=== PATIENT | male | born 1980 ===

== ENCOUNTER 2017-01-01 15:02 | Emergency (ER) | payer OTHER ==
[2017-01-01 15:12] VITALS: BP 136/78; PULSE 68; RESP 20; TEMP 98; O2SAT 100
[2017-01-01 15:43] LABS: BASO # 0.1 K/uL (0.0-0.2); EOS # 0.2 K/uL (0.0-0.7); EOS % 2.2 % (0.0-4.0); HEMOGLOBIN 14.4 g/dL (12.0-18.0); LYMPH # 2.1 K/uL (1.0-4.3); LYMPH % 29.4 % (20.0-40.0); MEAN CORPUSCULAR HEMOGLOBIN 30.5 pg (27.0-31.0); MEAN CORPUSCULAR HGB CONC 34.3 g/dL (33.0-37.0); MONO # 0.3 K/uL (0.0-0.8); MONO % 4.5 % (0.0-10.0); NEUT # 4.6 K/uL (1.8-7.0); NEUT % 62.9 % (50.0-75.0); NRBC % 0.2 % (0.0-0.0); RBC 4.71 Mil/uL (4.40-5.90); RED CELL DISTRIBUTION WIDTH 13.3 % (11.5-14.5); WHITE BLOOD COUNT 7.2 K/uL (4.8-10.8)
[2017-01-01 16:00] LABS: ALB/GLOB RATIO 1.4 (1.0-2.1); ALBUMIN 4.6 g/dL (3.5-5.0); ALT/SGPT 39 U/L (21-72); AST/SGOT 27 U/L (17-59); BLOOD UREA NITROGEN 19 mg/dl (9-20); CALCIUM 9.1 mg/dL (8.4-10.2); GFR AFRICAN-AMERICAN > 60; GFR NON-AFRICAN AMERICAN > 60; MAGNESIUM 2.1 MG/DL (1.6-2.3)
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
--- NOTE | 2017-01-01 17:50 | CT ---
PROCEDURE: CT HEAD WITHOUT CONTRAST. HISTORY: RIGHT sided headache RIGHT facial droop COMPARISON: None available. TECHNIQUE: Axial computed tomography images were obtained through the head/brain without intravenous contrast. Radiation dose: Total exam DLP = 805.14 mGy-cm. This CT exam was performed using one or more of the following dose reduction techniques: Automated exposure control, adjustment of the mA and/or kV according to patient size, and/or use of iterative reconstruction technique. FINDINGS: HEMORRHAGE: No intracranial hemorrhage. BRAIN: Ballesteros-white matter differentiation is preserved. There is no mass, mass effect or abnormal extra-axial fluid collection. VENTRICLES: The ventricles are normal in size, shape and configuration.. CALVARIUM: The skull base and calvarium are normal. PARANASAL SINUSES: Predominantly clear. MASTOID AIR CELLS: Predominantly clear. OTHER FINDINGS: None. IMPRESSION: No acute intracranial abnormality. If there is a persistent focal neurologic deficit and an ongoing clinical concern for acute infarction, an MRI of the brain without intravenous contrast would be a more sensitive modality for evaluation of hyperacute/acute ischemic infarction.
--- NOTE | 2017-01-02 09:51 | CARD ---
APPROVED REPORT EKG Measurement Heart [id number] VA 150P33 [id number] <Conclusion> Normal sinus rhythm Normal ECG
== END 2017-01-01 19:18 | disposition home or self-care (01) ==
LOC: H.ER 15:02
DX: G51.0 Bell's palsy (principal)

== ENCOUNTER 2017-01-03 16:16 | Emergency (ER) | payer OTHER ==
[2017-01-03 16:29] VITALS: BP 135/86; PULSE 94; RESP 18; TEMP 98.8; O2SAT 99
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
--- NOTE | 2017-01-10 10:07 | CARD ---
APPROVED REPORT EKG Measurement Heart [id number] AR 148P59 [id number] <Conclusion> Sinus tachycardia Otherwise normal ECG
== END 2017-01-03 17:30 | disposition home or self-care (01) ==
LOC: H.ER 16:16
DX: G51.0 Bell's palsy (principal)

== ENCOUNTER 2018-02-28 03:56 | Emergency (ER) | payer OTHER, SELFPAY ==
[2018-02-28 03:56] VITALS: BMI 26.4
[2018-02-28 04:15] VITALS: BP 108/62; PULSE 65; RESP 14; TEMP 98.9; O2SAT 98
[2018-02-28] MEDS ORDERED: Tdap Vaccine 0.5 ml Vial (10-64 yrs) IM ONE (04:17)
[2018-02-28] MEDS ORDERED: Amoxicillin-Clav 875-125 mg Tab PO STA (04:23)
--- NOTE | 2018-02-28 04:26 | ED PDOC ---
Lower Extremity Pain/Injury Time Seen by Provider: 02/28/18 04:11 Chief Complaint (Nursing): Lower Extremity Problem/Injury Chief Complaint (Provider): Lower Extremity Problem/Injury History Per: Patient History/Exam Limitations: no limitations Onset/Duration Of Symptoms: Hrs (x36) Current Symptoms Are (Timing): Still Present Additional Complaint(s): 37 y/o male with no significant PMHx presents to the ED for evaluation of a right foot puncture injury, onset 36 hours ago. Patient states he stepped on a nail while wearing shoes and punctured the anterior part of his right foot. Patient denies having medical care at onset but reports of increasing pain since thus prompting today's visit. Denies medications for pain relief, associated fever and chills. PMD: No Provider Past Medical History Reviewed: Historical Data, Nursing Documentation, Vital Signs Vital Signs: Last Vital Signs Temp 98.9 F 02/28/18 04:12 Pulse 65 02/28/18 04:12 Resp 14 02/28/18 04:12 BP 108/62 02/28/18 04:12 Pulse Ox 98 02/28/18 04:12 - Medical History PMH: No Chronic Diseases Denies: Chronic Kidney Disease - Surgical History Surgical History: No Surg Hx - Family History Family History: States: Unknown Family Hx - Social History Current smoker - smoking cessation education provided: No Alcohol: None Drugs: Denies - Immunization History Hx Tetanus Toxoid Vaccination: Yes Hx Influenza Vaccination: Yes Hx Pneumococcal Vaccination: No - Home Medications Home Medications: Ambulatory Orders Medication Instructions Recorded Amoxicillin/Clavulanate [Augmentin 1 tab PO BID #20 tab 02/28/18 875 MG-125 MG] - Allergies Allergies/Adverse Reactions: Allergies Allergy/AdvReac Type Severity Reaction Status Date / Time No Known Allergies Allergy Verified 02/28/18 04:12 Review of Systems ROS Statement: Except As Marked, All Systems Reviewed And Found Negative Constitutional: Negative for: Fever, Chills Musculoskeletal: Positive for: Foot Pain (right foot puncture injury) Physical Exam - Reviewed Nursing Documentation Reviewed: Yes Vital Signs Reviewed: Yes - Physical Exam Appears: Positive for: No Acute Distress Extremity: Positive for: Other (Small puncture josé miguel to the right anterior portion of the right foot noted. No focal weakness or drainage.) - ECG O2 Sat by Pulse Oximetry: 98 (RA) Pulse Ox Interpretation: Normal Medical Decision Making Medical Decision Making: Time: 422 Impression: 37 y/o male with a right foot puncture injury Plan: -- Adacel (10-64 yrs) 0.5 ml IM -- Augmentin 875 mg -125 mg 1 tab -- Motrin 600 mg PO -- Foot Right 3 Views XR -- XR results show no foreign body fractures. Patient is stable for discharge with a diagnosis of puncture injury of the foot. Scribe Attestation: Documented by Jack Cummings acting as a scribe for Aiden Ovalle MD. Provider Scribe Attestation: All medical record entries made by the Scribe were at my direction and personally dictated by me. I have reviewed the chart and agree that the record accurately reflects my personal performance of the history, physical exam, medical decision making, and the department course for this patient. I have also personally directed, reviewed, and agree with the discharge instructions and disposition. Disposition - Clinical Impression Clinical Impression: Puncture wound - Patient ED Disposition Is Patient to be Admitted: No Counseled Patient/Family Regarding: Studies Performed, Diagnosis - Disposition Disposition: Routine/Home Disposition Time: 04:29 Condition: STABLE Prescriptions: Amoxicillin/Clavulanate [Augmentin 875 MG-125 MG] 1 tab PO BID #20 tab Instructions: Wound Care Forms: [facility] (Azerbaijani), [facility] ED School/Work Excuse
[2018-02-28] MEDS ORDERED: Amoxicillin-Clav 875-125 mg Tab PO ONE (04:28)
--- NOTE | 2018-02-28 09:02 | RAD ---
Date of service: 02/28/2018 PROCEDURE: Right Foot Radiographs. HISTORY: stepped on nail COMPARISON: None. FINDINGS: BONES: Bone alignment and mineralization are normal. There is no acute displaced fracture or bone destruction. JOINTS: Normal. SOFT TISSUES: Normal. No radiopaque foreign body. OTHER FINDINGS: None. IMPRESSION: No acute fracture or dislocation. No radiopaque foreign body.
== END 2018-02-28 05:13 | disposition home or self-care (01) ==
LOC: H.ER 03:56
DX: S91.339A Puncture wound without foreign body, unspecified foot, initial encounter (principal); W45.0XXA Nail entering through skin, initial encounter; Y92.89 Other specified places as the place of occurrence of the external cause

== ENCOUNTER 2018-05-17 10:44 | Emergency (ER) | payer OTHER ==
[2018-05-17 10:45] VITALS: BMI 26.4
[2018-05-17 11:07] VITALS: BP 124/70; PULSE 68; TEMP 98.2; O2SAT 98
[2018-05-17 12:04] VITALS: RESP 19
[2018-05-17] MEDS ORDERED: Fluorescein 1 mg Ophthalmic Strip OU ONE (12:48)
[2018-05-17] MEDS ORDERED: PROPARACAINE/FLUORESCEIN SOD 100 DROP/5 ML BOTTLE ONE (12:52)
--- NOTE | 2018-05-17 13:45 | ED PDOC ---
HPI: Eye Injury/Pain Time Seen by Provider: 05/17/18 12:01 Chief Complaint (Nursing): Eye Problem Chief Complaint (Provider): eye redness History Per: Patient, Playroom Attendant History/Exam Limitations: no limitations Onset/Duration Of Symptoms: Days Current Symptoms Are (Timing): Still Present Injury To Eye?: No Wears Contact Lens?: No Associated Symptoms: Discharge From Eye (had some tearing from eye 3d. ago) Additional Complaint(s): Pt. reports waking up 3d. ago with redness to both eyes, pt. reports some mild discomfort below his right eye which has since resolved. Pt. reports 3d. ago at symptom onset he had some tearing from both eyes, no purulent drainage, no visual disturbance. Pt. reports the redness is unchanged over past 3 days has not gotten worse. Pt. denies any bleeding disorders or other history of bleeding, bruising. Past Medical History Reviewed: Historical Data, Nursing Documentation, Vital Signs Vital Signs: Last Vital Signs Temp 98.2 F 05/17/18 12:01 Pulse 68 05/17/18 12:01 Resp 19 05/17/18 12:01 BP 124/70 05/17/18 12:01 Pulse Ox 98 05/17/18 12:01 - Medical History PMH: No Chronic Diseases Denies: Chronic Kidney Disease - Family History Family History: States: Unknown Family Hx - Immunization History Hx Tetanus Toxoid Vaccination: Yes Hx Influenza Vaccination: Yes Hx Pneumococcal Vaccination: No - Home Medications Home Medications: Ambulatory Orders Medication Instructions Recorded No Known Home Med 05/17/18 - Allergies Allergies/Adverse Reactions: Allergies Allergy/AdvReac Type Severity Reaction Status Date / Time No Known Allergies Allergy Verified 02/28/18 04:12 Review of Systems Eyes: Positive for: Redness. Negative for: Pain, Vision Change Skin: Negative for: Bruising Physical Exam - Physical Exam Eye Exam: Positive for: EOMI, PERRL, Other (bilateral subconjunctival hemorrhage to lateral aspects of bilateral eyes, (-) hyphemas. ). Negative for: Nystagmus, Periorbital swelling, Periorbital tenderness - ECG O2 Sat by Pulse Oximetry: 98 Pulse Ox Interpretation: Normal Medical Decision Making Medical Decision Making: Pt. well appearing, exam as above with bilateral subconjunctival hemorrhages, denies any injury or trauma but does reports some mild coughing the last week. Flourescein: no uptake bilaterally Tonopen: 18mmHg right, 19 mmHg left Visual acuity: 20/20 right, 20/20 left, 20/20 both Pt. well appearing, no visual complaints. Exam as above, advised need for optho follow up, contact info given. Disposition - Clinical Impression Clinical Impression: Subconjunctival hemorrhage of both eyes - Patient ED Disposition Is Patient to be Admitted: No Counseled Patient/Family Regarding: Diagnosis, Need For Followup - Disposition Referrals: Frederick Sanders MD [Staff Provider] - Disposition: Routine/Home Disposition Time: 13:50 Condition: STABLE Instructions: Subconjunctival Hemorrhage Forms: [facility] (German), [facility] (Jamaican) Print Language: TAIWANESE
== END 2018-05-17 14:36 | disposition home or self-care (01) ==
LOC: H.ER 10:44
DX: H11.33 Conjunctival hemorrhage, bilateral (principal)

== ENCOUNTER 2018-08-11 04:59 | Emergency (ER) | payer SELFPAY ==
[2018-08-11 04:59] VITALS: BMI 26.4
[2018-08-11 05:09] VITALS: BP 125/69; PULSE 79; RESP 16; TEMP 97.9; O2SAT 98
--- NOTE | 2018-08-11 09:44 | ED PDOC ---
HPI: Influenza Time Seen by Provider: 08/11/18 07:09 Chief Complaint: Cough, Cold, Congestion Chief Complaint (Provider): Cough, Cold, Congestion History Per: Patient Exam Limitations: no limitations Onset/Duration Of Symptoms: Days (3 weeks) Additional complaint(s):: Patient is a 37 y/o male with no significant PMHx who presents to the ED for evaluation of a cough ongoing for the past three weeks. Patient states on 08/05/2018 he was seen by a doctor and was given Promethazine with minimal relief. Patient admits to bilateral rib pain upon coughing. Patient denies fever, a sore throat, and difficulty breathing. PCP: None Provided Past Medical History Reviewed: Historical Data, Nursing Documentation, Vital Signs Vital Signs: Last Vital Signs Temp 97.9 F 08/11/18 05:07 Pulse 79 08/11/18 05:07 Resp 16 08/11/18 05:07 BP 125/69 08/11/18 05:07 Pulse Ox 98 08/11/18 05:07 - Medical History PMH: No Chronic Diseases Denies: Chronic Kidney Disease - Surgical History Surgical History: No Surg Hx - Family History Family History: States: Unknown Family Hx - Immunization History Hx Tetanus Toxoid Vaccination: Yes Hx Influenza Vaccination: Yes Hx Pneumococcal Vaccination: No - Home Medications Home Medications: Ambulatory Orders Medication Instructions Recorded RX: Albuterol HFA [Ventolin HFA 90 1 puff IH Q4 #1 inhaler 08/11/18 mcg/actuation (8 g)] RX: Azithromycin [Z-Amadou] 250 mg PO ASDIR #6 tab 08/11/18 - Allergies Allergies/Adverse Reactions: Allergies Allergy/AdvReac Type Severity Reaction Status Date / Time No Known Allergies Allergy Verified 02/28/18 04:12 Review of Systems ROS Statement: Except As Marked, All Systems Reviewed And Found Negative Constitutional: Negative for: Fever ENT: Negative for: Throat Pain (soreness) Cardiovascular: Positive for: Chest Pain (bilateral rib cage) Respiratory: Positive for: Cough Physical Exam - Reviewed Nursing Documentation Reviewed: Yes Vital Signs Reviewed: Yes - Physical Exam Appears: Positive for: Non-toxic, No Acute Distress Head Exam: Positive for: ATRAUMATIC, NORMAL INSPECTION, NORMOCEPHALIC Skin: Positive for: Normal Color, Warm, Dry Eye Exam: Positive for: Normal appearance, EOMI, PERRL ENT: Positive for: Normal ENT Inspection. Negative for: Pharyngeal Erythema, Tonsillar Exudate, Tonsillar Swelling Neck: Positive for: Normal, Painless ROM, Supple Cardiovascular/Chest: Positive for: Regular Rate, Rhythm. Negative for: Murmur Respiratory: Positive for: Normal Breath Sounds. Negative for: Respiratory Distress Gastrointestinal/Abdominal: Positive for: Normal Exam, Soft. Negative for: Tenderness Back: Positive for: Normal Inspection. Negative for: L CVA Tenderness, R CVA Tenderness, Vertebral Tenderness Extremity: Positive for: Normal ROM. Negative for: Pedal Edema, Deformity Neurologic/Psych: Positive for: Alert, Oriented. Negative for: Motor/Sensory Deficits Medical Decision Making Medical Decision Making: Time: 718 Impression: Cough DDx includes but not limited to acute bronchitis. r/o PNA. Plan: CXR Motrin 400 mg PO Throat Culture Rapid Strep Group A Antigen Time: 929 Strep Negative. CXR Unremarkable. Scribe Attestation: Documented by Guillaume Bee, acting as a scribe for Skyler Lee MD. Provider Scribe Attestation: All medical record entries made by the Scribe were at my direction and personally dictated by me. I have reviewed the chart and agree that the record accurately reflects my personal performance of the history, physical exam, m edical decision making, and the department course for this patient. I have also personally directed, reviewed, and agree with the discharge instructions and disposition. - ECG O2 Sat by Pulse Oximetry: 98 (RA) Pulse Ox Interpretation: Normal - Progress Re-evaluation Time: 09:40 Condition: Re-examined, Improved Disposition - Clinical Impression Clinical Impression: Bronchitis - Patient ED Disposition Is Patient to be Admitted: No Doctor Will See Patient In The: Office Counseled Patient/Family Regarding: Studies Performed, Diagnosis, Need For Followup - Disposition Referrals: [facility] [Outside] Disposition: Routine/Home Disposition Time: 09:42 Condition: GOOD Additional Instructions: ROCIO GARBIAY, thank you for letting us take care of you today. Your provider was Skyler Lee MD and you were treated for COUGH/BODY PAIN. The emergency medical care you received today was directed at your acute symptoms. If you were prescribed any medication, please fill it and take as directed. It may take several days for your symptoms to resolve. Return to the Emergency Department if your symptoms worsen, do not improve, or if you have any other problems. Please contact your doctor or call one of the physicians/clinics you have been referred to that are listed on the Patient Visit Information form that is included in your discharge packet. Bring any paperwork you were given at discharge with you along with any medications you are taking to your follow up visit. Our treatment cannot replace ongoing medical care by a primary care provider outside of the emergency department. Thank you for allowing the [facility] team to be part of your care today. If you had an X-Ray or CT scan: A Radiologist will review the ED reading if any change in treatment is needed we will contact you. If you had a blood, urine, or wound culture: It will take several days for the results, if any change in treatment is needed we will contact you. If you had an STI test: It will take 48 hours for the results. Please call after 1 week if you have not heard back. Prescriptions: RX: Albuterol HFA [Ventolin HFA 90 mcg/actuation (8 g)] 1 puff IH Q4 #1 inhaler RX: Azithromycin [Z-Amadou] 250 mg PO ASDIR #6 tab Instructions: Acute Bronchitis Print Language: SAMI
--- NOTE | 2018-08-11 10:06 | RAD ---
Date of service: 08/11/2018 HISTORY: cough chest pain COMPARISON: No prior. TECHNIQUE: Chest PA and lateral FINDINGS: LUNGS: No active pulmonary disease. PLEURA: No significant pleural effusion identified. No pneumothorax apparent. CARDIOVASCULAR: No aortic atherosclerotic calcification present. Normal cardiac size. No pulmonary vascular congestion. OSSEOUS STRUCTURES: No significant abnormalities. VISUALIZED UPPER ABDOMEN: Normal. OTHER FINDINGS: None. IMPRESSION: No active disease.
== END 2018-08-11 09:51 | disposition home or self-care (01) ==
LOC: H.ER 04:59
DX: J20.9 Acute bronchitis, unspecified (principal)